=== PATIENT | male | born 1965 | race Caucasian/White ===

== ENCOUNTER 2018-04-24 21:49 | Observation (INO) | payer OTHER ==
[~2018-04-24] VITALS: Ht 180.3 cm; Wt 69.5 kg
[2018-04-24 22:29] LABS: HEMATOCRIT 41.6 % (38.0-50.0); HEMOGLOBIN 14.7 G/DL (12.5-16.6); MCH 30.9 PG (29.0-34.0); MCHC 35.3 G/DL (30.0-36.0); MCV 87.4 FL (86-99); PLATELET COUNT 298 K/uL (156-360); RBC DIS.WIDTH-CV 13.2 % (11.8-14.6); RBC DIS.WIDTH-SD 42.5 % (39-53); RED BLOOD COUNT 4.76 M/uL (4.00-5.50); WHITE BLOOD COUNT 9.4 K/uL (4.1-10.2)
[2018-04-24 22:43] LABS: CHLORIDE 103 mEq/L (99-109); POTASSIUM 3.8 mEq/L (3.7-5.4); SODIUM 137 mEq/L (136-147)
[2018-04-24 22:44] LABS: GLUCOSE 103 mg/dL (70-99)
[2018-04-24 22:48] LABS: CREATININE 0.8 mg/dL (0.6-1.3); GFR ESTIMATE (CALCULATED) > 59 mL/min/ (58.99-99999)
[2018-04-24 22:49] LABS: UREA NITROGEN (BUN) 7 mg/dL (9-23)
[2018-04-24 22:57] LABS: TROP-I INTERPRETATION NEGATIVE; TROPONIN-I < 0.01 ng/mL (0.0-0.30)
[2018-04-25] MEDS ORDERED: COMBIVENT RESPIM4 GM IH (01:19)
[2018-04-25] MEDS ORDERED: LEVOTHYROXINE25 MCG PO (01:20)
[2018-04-25] MEDS ORDERED: GABAPENTIN300 MG PO (01:20)
[2018-04-25] MEDS ORDERED: HYDROXYZINE PAM50 MG PO (01:20)
[2018-04-25] MEDS ORDERED: ALBUTEROL2.5 MG/3 M IH (01:21)
[2018-04-25] MEDS ORDERED: OXYCODONE HCL5 MG PO (01:21)
[2018-04-25] MEDS ORDERED: AMLODIPINE BES2.5 MG PO (01:21)
[2018-04-25] MEDS ORDERED: LIDOCAINE HCL120 GM TP (01:21)
[2018-04-25] MEDS ORDERED: [UNRECOGNIZED DRUG - CODE] TP (01:23)
[2018-04-25] MEDS ORDERED: TRAZODONE HCL50 MG PO (01:26)
[2018-04-25] MEDS ORDERED: MIRTAZAPINE7.5 MG PO (01:27)
[2018-04-25 02:56] LABS: SERUM ETHYL ALCOHOL 311 mg/dL
[2018-04-25 03:23] LABS: MAGNESIUM 2.3 mg/dL (1.3-2.7)
[2018-04-25 03:43] VITALS: BP 115/78
[2018-04-25 07:34] VITALS: BP 111/57
[2018-04-25 11:30] LABS: TROP-I INTERPRETATION NEGATIVE; TROPONIN-I < 0.01 ng/mL (0.0-0.30)
[2018-04-25 11:44] VITALS: BP 116/64
[2018-04-25 15:06] VITALS: BP 120/60
[2018-04-25 20:30] VITALS: BP 121/58
[2018-04-25 23:58] VITALS: BP 122/57
[2018-04-26 03:06] VITALS: BP 129/67
[2018-04-26 05:58] LABS: CHLORIDE 107 MEQ/L (99-109); CREATININE 0.8 MG/DL (0.6-1.3); GFR ESTIMATE (CALCULATED) > 59 mL/min/ (58.99-99999); GLUCOSE 110 mg/dL (70-99); POTASSIUM 3.8 MEQ/L (3.7-5.4); SODIUM 139 MEQ/L (136-147); UREA NITROGEN (BUN) 13 mg/dL (9-23)
[2018-04-26 06:24] LABS: BASOPHIL (%) 0.9 % (0-1); BASOPHIL COUNT 0.1 K/uL (0-0.1); EOSINOPHIL (%) 1.5 % (0-5); EOSINOPHIL COUNT 0.1 K/uL (0-0.3); HEMATOCRIT 36.4 % (38.0-50.0); IMMATURE GRANULOCYTE (%) 0.2 % (0.0-0.7); LYMPHOCYTE (%) 53.6 % (15-42); LYMPHOCYTE COUNT 2.9 K/uL (1.0-2.8); MCH 29.5 PG (29.0-34.0); MCHC 33.5 G/DL (30.0-36.0); MCV 88.1 FL (86-99); MONOCYTE (%) 8.6 % (3-12); MONOCYTE COUNT 0.5 K/uL (0-0.8); NEUTROPHIL (%) 35.2 % (45-76); NEUTROPHIL COUNT 1.9 K/uL (1.8-6.4); PLATELET COUNT 252 K/uL (156-360); RBC DIS.WIDTH-CV 13.2 % (11.8-14.6); RBC DIS.WIDTH-SD 42.6 % (39-53); RED BLOOD COUNT 4.13 M/uL (4.00-5.50); WHITE BLOOD COUNT 5.5 K/uL (4.1-10.2)
[2018-04-26 06:28] LABS: HEMOGLOBIN 12.2 G/DL (12.5-16.6)
[2018-04-26 08:16] VITALS: BP 132/70
== END 2018-04-26 10:16 | disposition home or self-care (01) ==
LOC: EME 21:49 → 4SOUTH 04-25 02:23 → EDOF 04-25 02:23 → ENRESERV 04-25 02:26 → 4SOUTH 04-25 03:45
PROVIDERS: Internal Medicine; Physician Assistant Medical
DX: R07.9 Chest pain, unspecified (principal); F10.229 Alcohol dependence with intoxication, unspecified; Y90.8 Blood alcohol level of 240 mg/100 ml or more; G89.29 Other chronic pain; M25.551 Pain in right hip; M25.552 Pain in left hip; Z79.82 Long term (current) use of aspirin; J44.9 Chronic obstructive pulmonary disease, unspecified; E03.9 Hypothyroidism, unspecified; F17.210 Nicotine dependence, cigarettes, uncomplicated; M87.859 Other osteonecrosis, unspecified femur; I10 Essential (primary) hypertension; F32.9 Major depressive disorder, single episode, unspecified; F41.9 Anxiety disorder, unspecified; Z82.5 Family history of asthma and other chronic lower respiratory diseases; Z88.0 Allergy status to penicillin; Z88.5 Allergy status to narcotic agent; Z88.1 Allergy status to other antibiotic agents; Z88.8 Allergy status to other drugs, medicaments and biological substances
CPT/HCPCS: 71046; 80048; 83735; 84484; 85025; 85027; 93005; 94640; 94799; 99281; 99285; G0378; G0480; J1644; J2060; J3411; J7030

== ENCOUNTER 2018-06-09 02:22 | Inpatient (IN) | payer OTHER ==
[~2018-06-09] VITALS: Ht 180.3 cm; Wt 63.7 kg
[~2018-06-09 02:22] MED LIST: ALBUTEROL2.5 MG/3 M IH; AMLODIPINE BES2.5 MG PO; COMBIVENT RESPIM4 GM IH; GABAPENTIN300 MG PO; HYDROXYZINE PAM50 MG PO; LEVOTHYROXINE25 MCG PO; LIDOCAINE HCL120 GM TP; MIRTAZAPINE7.5 MG PO; OXYCODONE HCL5 MG PO; TRAZODONE HCL100 MG PO; [UNRECOGNIZED DRUG - CODE] TP
[2018-06-09 02:53] LABS: HEMATOCRIT 43.7 % (38.0-50.0); MCH 29.4 PG (29.0-34.0); MCHC 34.3 G/DL (30.0-36.0); MCV 85.7 FL (86-99); PLATELET COUNT 272 K/uL (156-360); RBC DIS.WIDTH-SD 40.3 % (39-53); WHITE BLOOD COUNT 5.2 K/uL (4.1-10.2)
[2018-06-09 02:55] LABS: CARBON DIOXIDE (BICARBONATE) 26.5 MEQ/L (20-31)
[2018-06-09 03:04] LABS: CHLORIDE 104 mEq/L (99-109); POTASSIUM 4.1 mEq/L (3.7-5.4); SODIUM 138 mEq/L (136-147)
[2018-06-09 03:05] LABS: GLUCOSE 89 mg/dL (70-99)
[2018-06-09 03:09] LABS: GFR ESTIMATE (CALCULATED) > 59 mL/min/ (58.99-99999)
[2018-06-09 03:10] LABS: UREA NITROGEN (BUN) 6 mg/dL (9-23)
[2018-06-09 03:17] LABS: TROP-I INTERPRETATION NEGATIVE; TROPONIN-I < 0.01 ng/mL (0.0-0.30)
[2018-06-09] MEDS ORDERED: MIRTAZAPINE15 MG PO (03:42)
[2018-06-09] MEDS ORDERED: TRAMADOL HCL50 MG PO (03:44)
[2018-06-09 04:25] LABS: ALBUMIN 4.2 g/dL (3.2-4.8)
[2018-06-09 04:28] LABS: TOTAL PROTEIN 7.1 g/dL (6.4-8.3)
[2018-06-09 04:29] LABS: TOTAL BILIRUBIN 0.4 mg/dL (0.0-1.0)
[2018-06-09 04:31] LABS: ALKALINE PHOSPHATASE 88 IU/L (3-129); SERUM ETHYL ALCOHOL < 10 mg/dL
[2018-06-09 04:33] LABS: AST (GOT) 17 IU/L (2-34); DIRECT BILIRUBIN 0.2 mg/dL (0.0-0.3)
[2018-06-09 04:34] LABS: ALT (GPT) 9 IU/L (3-49); LIPASE 11 U/L (1.0-51.0)
[2018-06-09 05:46] VITALS: BP 142/69
[2018-06-09 07:55] VITALS: BP 148/64
[2018-06-09] MEDS ORDERED: HYDROXYZINE PAM50 MG PO (09:35)
[2018-06-09] MEDS ORDERED: [UNRECOGNIZED DRUG - MIXTURE] TP (09:35)
[2018-06-09] MEDS ORDERED: VENTOLIN HFA18 GM IH (09:36)
[2018-06-09 11:20] VITALS: BP 145/77
[2018-06-09 15:05] LABS: TROP-I INTERPRETATION NEGATIVE; TROPONIN-I < 0.01 ng/mL (0.0-0.30)
[2018-06-09 16:01] VITALS: BP 128/60
[2018-06-09 20:08] VITALS: BP 137/73
[2018-06-09 20:53] LABS: TROP-I INTERPRETATION NEGATIVE; TROPONIN-I < 0.01 ng/mL (0.0-0.30)
[2018-06-09 21:01] LABS: BENZODIAZEPINES, URINE SCREEN Negative (200 ng/mL)
[2018-06-09 23:38] VITALS: BP 145/63
[2018-06-10 02:45] LABS: HEMATOCRIT 38.2 % (38.0-50.0); HEMOGLOBIN 13.2 G/DL (12.5-16.6); MCH 28.9 PG (29.0-34.0); MCHC 34.6 G/DL (30.0-36.0); MCV 83.6 FL (86-99); PLATELET COUNT 316 K/uL (156-360); RBC DIS.WIDTH-CV 12.7 % (11.8-14.6); RBC DIS.WIDTH-SD 38.7 % (39-53); RED BLOOD COUNT 4.57 M/uL (4.00-5.50); WHITE BLOOD COUNT 7.7 K/uL (4.1-10.2)
[2018-06-10 02:58] LABS: CHLORIDE 106 mEq/L (99-109); POTASSIUM 4.2 mEq/L (3.7-5.4); SODIUM 136 mEq/L (136-147)
[2018-06-10 02:59] LABS: MAGNESIUM 2.1 mg/dL (1.3-2.7)
[2018-06-10 03:04] LABS: GFR ESTIMATE (CALCULATED) > 59 mL/min/ (58.99-99999); UREA NITROGEN (BUN) 14 mg/dL (9-23)
[2018-06-10 03:08] LABS: TROP-I INTERPRETATION NEGATIVE; TROPONIN-I < 0.01 ng/mL (0.0-0.30)
[2018-06-10 03:11] LABS: GLUCOSE 199 mg/dL (70-99)
[2018-06-10 04:22] VITALS: BP 123/64
[2018-06-10 07:39] VITALS: BP 115/59
[2018-06-10 11:32] VITALS: BP 126/58
[2018-06-10 16:10] VITALS: BP 146/65
[2018-06-10 20:13] VITALS: BP 146/63
[2018-06-11 00:09] VITALS: BP 120/58
[2018-06-11 03:57] VITALS: BP 137/67
[2018-06-11 06:33] LABS: HEMATOCRIT 39.1 % (38.0-50.0); HEMOGLOBIN 13.2 G/DL (12.5-16.6); MCH 28.8 PG (29.0-34.0); MCHC 33.8 G/DL (30.0-36.0); MCV 85.2 FL (86-99); PLATELET COUNT 336 K/uL (156-360); RBC DIS.WIDTH-CV 13.2 % (11.8-14.6); RBC DIS.WIDTH-SD 41.2 % (39-53); RED BLOOD COUNT 4.59 M/uL (4.00-5.50); WHITE BLOOD COUNT 12.9 K/uL (4.1-10.2)
[2018-06-11 07:09] LABS: CHLORIDE 104 MEQ/L (99-109); CREATININE 0.7 MG/DL (0.6-1.3); GFR ESTIMATE (CALCULATED) > 59 mL/min/ (58.99-99999); GLUCOSE 185 mg/dL (70-99); MAGNESIUM 1.7 mg/dl (1.3-2.7); SODIUM 138 MEQ/L (136-147); UREA NITROGEN (BUN) 13 mg/dL (9-23)
[2018-06-11 07:28] VITALS: BP 120/56
[2018-06-11 11:35] VITALS: BP 158/67
[2018-06-11 16:20] VITALS: BP 145/65
[2018-06-11 19:50] VITALS: BP 119/70
[2018-06-12 00:06] VITALS: BP 144/80
[2018-06-12 04:34] VITALS: BP 116/65
[2018-06-12 07:32] VITALS: BP 127/64
[2018-06-12] MEDS ORDERED: CELECOXIB200 MG PO (09:50)
[2018-06-12] MEDS ORDERED: GUAIFENESI100 MG/5 M PO (09:53)
[2018-06-12] MEDS ORDERED: FOLIC ACID1 MG PO (09:53)
[2018-06-12] MEDS ORDERED: SORE THROAT LO1 EAC3 MM (09:53)
[2018-06-12] MEDS ORDERED: PREDNISONE20 MG PO ×2 (09:53→09:59)
[2018-06-12] MEDS ORDERED: THERAGRAN1 TABLET PO (09:53)
[2018-06-12] MEDS ORDERED: DOCUSATE SODIU100 MG PO (09:53)
[2018-06-12] MEDS ORDERED: Thiamine,Vitamin B1 PO (09:53)
[2018-06-12] MEDS ORDERED: CHLORDIAZEPOXID25 MG PO (09:53)
[2018-06-12] MEDS ORDERED: NICOTINE PATCH1 EAC1 TD (09:53)
[2018-06-12] MEDS ORDERED: DULERA 100 MCG/13 GM IH (09:53)
[2018-06-12] MEDS ORDERED: POLYETHYLENE GL17 GM PO (09:53)
[2018-06-12] MEDS ORDERED: SPIRIVA RESPIMAT4 GM IH (09:53)
[2018-06-12] MEDS ORDERED: DUONEB 2.5-0.5 M3 ML AEROSOL (09:53)
[2018-06-12] MEDS ORDERED: PREDNISONE5 MG PO (09:59)
[2018-06-12] MEDS ORDERED: PREDNISONE10 MG PO (09:59)
[2018-06-12 11:29] VITALS: BP 145/76
[2018-06-15] MEDS ORDERED: SPIRIVA RESPIMAT4 GM IH (16:29)
[2018-06-15] MEDS ORDERED: CELEBREX200 MG PO (16:30)
[2018-06-15] MEDS ORDERED: NICODERM CQ1 EAC1 TD (16:30)
[2018-06-15] MEDS ORDERED: MIRALAX17 GM PO (16:35)
[2018-06-15] MEDS ORDERED: COLACE100 MG PO (16:35)
[2018-06-15] MEDS ORDERED: FOLIC ACID1 MG PO (16:35)
[2018-06-15] MEDS ORDERED: DAILY VALUE1 EACH PO (16:35)
[2018-06-15] MEDS ORDERED: VITAMIN B-1100 MG PO (16:36)
[2018-06-15] MEDS ORDERED: DELTASONE20 M1 PO ×3 (16:36→16:38)
[2018-06-15] MEDS ORDERED: PREDNISONE10 MG PO ×2 (16:37→16:38)
[2018-06-15] MEDS ORDERED: COMBIVENT RESPIM4 GM IH (16:39)
[2018-06-15] MEDS ORDERED: PREDNISONE5 MG PO (16:39)
== END 2018-06-12 13:55 | disposition home health service (06) | DRG 191 ==
LOC: EME 02:22 → EDOF 03:42 → 3EAST 03:42
PROVIDERS: Emergency Medicine; Internal Medicine; Physician Assistant
DX: J44.1 Chronic obstructive pulmonary disease with (acute) exacerbation (principal); J44.0 Chronic obstructive pulmonary disease with (acute) lower respiratory infection; J20.9 Acute bronchitis, unspecified; J98.09 Other diseases of bronchus, not elsewhere classified; J98.8 Other specified respiratory disorders; F10.239 Alcohol dependence with withdrawal, unspecified; Y90.0 Blood alcohol level of less than 20 mg/100 ml; K59.00 Constipation, unspecified; I10 Essential (primary) hypertension; E03.9 Hypothyroidism, unspecified; F32.9 Major depressive disorder, single episode, unspecified; F41.9 Anxiety disorder, unspecified; G89.29 Other chronic pain; M25.511 Pain in right shoulder; M25.552 Pain in left hip; F17.210 Nicotine dependence, cigarettes, uncomplicated; M19.90 Unspecified osteoarthritis, unspecified site; Z87.01 Personal history of pneumonia (recurrent)
CPT/HCPCS: 71045; 71275; 80048; 80076; 80306 90; 82803; 83605; 83690; 83735; 83880; 84484; 85027; 85379; 87040; 87070; 87205; 87449; 93005; 94640; 94799; 99281; 99285; G0480; J0696; J1644; J2270; J2920; J2930; J7030; J7512